=== PATIENT | male | born 1995 | race Caucasian/White ===

== ENCOUNTER → 2017-09-16 | Outpatient (CLI) | payer OTHER | LOC: COL.RAD 10:51 | DX: I88.9 Nonspecific lymphadenitis, unspecified (principal); J32.0 Chronic maxillary sinusitis | CPT/HCPCS: Q9967 ==

== ENCOUNTER → 2017-09-29 | Outpatient (CLI) | payer OTHER ==
[~2017-09-29] VITALS: Ht 185.4 cm; Wt 80.1 kg
[~2017-09-29] MED LIST: AMOXICILLIN 8751 TAB PO; AUGMENTIN 250 M1 TAB PO
[2017-09-29 09:42] VITALS: BP 135/85; PULSE 96
[2017-09-29 11:40] VITALS: BP 124/79; PULSE 76
== END ==
LOC: COL.RAD 09:20
DX: R59.0 Localized enlarged lymph nodes (principal); R52 Pain, unspecified
CPT/HCPCS: 25581